=== PATIENT | male | born 1980 | race African-American/Black ===

== ENCOUNTER 2016-06-10 13:05 | Emergency (ER) | payer SELFPAY ==
[~2016-06-10] VITALS: Ht 182.9 cm; Wt 97.0 kg
[2016-06-10 14:50] LABS: ADD MIUA? YES; BILIRUBIN NEGATIVE; BLOOD SMALL; COLOR STRAW ((YELLOW)); GLUCOSE (STRIP) NEGATIVE; KETONES NEGATIVE; LEUKOCYTES NEGATIVE; NITRITE NEGATIVE; PROTEIN (STRIP) NEGATIVE; SPECIFIC GRAVITY 1.008 (1.000-1.030); UROBILINOGEN 0.2 MG/DL (0.2-1.0)
[2016-06-10 15:08] LABS: BACTERIA NONE SEEN /HPF; EPITHELIAL CELLS NONE SEEN /HPF; MUCUS NONE SEEN /LPF; RED BLOOD CELLS 0-5 /HPF (0-5); UCUL ADDED? NO; WHITE BLOOD CELLS 0-5 /HPF (0-5)
[2016-06-10] MEDS ORDERED: CITRATE OF MAG296 ML PO (15:10)
[2016-06-10 15:23] VITALS: BP 125/86
[2016-06-11 13:41] LABS: CHLAMYDIA TRACHOMATIS NEGATIVE; NEISSERIA GONORRHOEAE NEGATIVE
== END 2016-06-10 15:24 | disposition home or self-care (01) ==
LOC: EME 13:05
PROVIDERS: Physician Assistant
DX: R10.30 Lower abdominal pain, unspecified (principal); K59.00 Constipation, unspecified; R31.9 Hematuria, unspecified
CPT/HCPCS: 74020; 81003; 87491; 87591; 99281; 99284